=== PATIENT | female | born 1945 | race Caucasian/White ===

== ENCOUNTER 2016-11-15 14:11 | Inpatient (IN) | payer MEDICARE, MEDICAID ==
[2016-11-15] MEDS ORDERED: Sodium Chloride 0.9% 2.5 ML Syringe FLUSH PRN (14:36)
[2016-11-15] MEDS ORDERED: Aspirin 81 MG Tab.Chew PO ONE (14:36)
[2016-11-15] MEDS ORDERED: Furosemide 40 MG/4 ML VIAL IVPUSH ONE (14:36)
[2016-11-15] MEDS ORDERED: Diltiazem 25 MG/5 ML SDV IVPUSH ONE (14:36)
[2016-11-15] MEDS ORDERED: Sodium Chloride 0.9% 10 ML Syringe FLUSH PRN (14:36)
--- NOTE | 2016-11-15 14:56 | EDM.PDOC ---
ED HPI GENERAL MEDICAL PROBLEM - General Chief Complaint: Cardiovascular Problem Stated Complaint: PAIN/SWELLING FEET TROUBLE BREATHING Time Seen by Provider: 11/15/16 14:34 - History of Present Illness INITIAL COMMENTS - FREE TEXT/NARRATIVE: HISTORY AND PHYSICAL: History of present illness: Patient 71-year-old white female sensory concern of shortness of breath she's extremely poor historian she also has increased peripheral edema she denies chest pain nausea vomiting fever chills or other concern Review of systems: As per history of present illness and below otherwise all systems reviewed and negative. Past medical history: As per history of present illness and as reviewed below otherwise noncontributory. Surgical history: As per history of present illness and as reviewed below otherwise noncontributory. Social history: No reported history of drug or alcohol abuse. Family history: As per history of present illness and as reviewed below otherwise noncontributory. Physical exam: HEENT: Atraumatic, normocephalic, pupils reactive, negative for conjunctival pallor or scleral icterus, mucous membranes moist, throat clear, neck supple, nontender, trachea midline. Lungs: Basilar crackles noted, breath sounds equal bilaterally, chest nontender. Heart: S1S2, irregularly irregular and tachycardic negative for clicks, rubs, or JVD. Abdomen: Soft, nondistended, nontender. Negative for masses or hepatosplenomegaly. Negative for costovertebral tenderness. Pelvis: Stable nontender. Genitourinary: Deferred. Rectal: Deferred. Extremities: Atraumatic, negative for cords or calf pain. Neurovascular unremarkable. 3+ edema noted inferior extremities Neuro: Awake, alert, follows commands and moves all extremities limited grossly nonfocal exam Diagnostics: CBC CMP troponin BNP PT/INR chest x-ray EKG Therapeutics: IV O2 monitor Cardizem 20 mg IV aspirin 324 mg by mouth Impression: #1 atrial fibrillation with rapid ventricular response #2 CHF Definitive disposition and diagnosis as appropriate pending reevaluation and review of above. - Related Data Allergies Allergy/AdvReac Type Severity Reaction Status Date / Time No Known Allergies Allergy Verified 11/15/16 14:25 Home Meds: Home Meds . [Unable to Verify Home Med List] 11/15/16 [History] ED ROS GENERAL - Review of Systems Review Of Systems: ROS reveals no pertinent complaints other than HPI. ED EXAM, GENERAL - Physical Exam Exam: See Below (See dictation) Course - Vital Signs Last Recorded V/S: Last Vital Signs Temp 36.0 C 11/15/16 14:12 Pulse 114 H 11/15/16 14:12 Resp 21 H 11/15/16 15:36 BP 92/64 11/15/16 15:36 Pulse Ox 98 11/15/16 15:36 - Orders/Labs/Meds Orders: Active Orders 24 hr Category Date Time Status Cardiac Monitoring [RC] . DIRECTED Care 11/15/16 14:34 Active EKG Documentation Completion [RC] STAT Care 11/15/16 14:35 Active Oxygen Therapy, ED [RC] ASDIRECTED Care 11/15/16 14:34 Active Chest 1V Frontal [CR] Stat Exams 11/15/16 14:36 Taken UA W/MICROSCOPIC [URIN] Stat Lab 11/15/16 14:35 Ordered Sodium Chloride 0.9% [Saline Flush] Med 11/15/16 14:36 Active 10 ml FLUSH ASDIRECTED PRN Sodium Chloride 0.9% [Saline Flush] Med 11/15/16 14:36 Active 2.5 ml FLUSH ASDIRECTED PRN Saline Lock Insert [OM.PC] Stat Oth 11/15/16 14:34 Ordered Medication Orders Sodium Chloride (Saline Flush) 10 ml FLUSH ASDIRECTED PRN PRN Reason: Keep Vein Open Sodium Chloride (Saline Flush) 2.5 ml FLUSH ASDIRECTED PRN PRN Reason: Keep Vein Open Labs: Laboratory Tests 11/15/16 11/15/16 11/15/16 Range/Units 14:56 14:56 14:56 WBC 10.04 (4.0-11.0) K/uL RBC 4.12 L (4.30-5.90) M/uL Hgb 13.3 (12.0-16.0) g/dL Hct 40.5 (36.0-46.0) % MCV 98.3 H (80.0-98.0) fL MCH 32.3 H (27.0-32.0) pg MCHC 32.8 (31.0-37.0) g/dL RDW Std Deviation 54.1 (28.0-62.0) fl RDW Coeff of [place] 15 (11.0-15.0) % Plt Count 212 (150-400) K/uL MPV 9.10 (7.40-12.00) fL Neut % (Auto) 85.7 H (48.0-80.0) % Lymph % (Auto) 8.7 L (16.0-40.0) % [place] % (Auto) 4.8 (0.0-15.0) % Eos % (Auto) 0.4 (0.0-7.0) % Baso % (Auto) 0.4 (0.0-1.5) % Neut # (Auto) 8.6 H (1.4-5.7) K/uL Lymph # (Auto) 0.9 (0.6-2.4) K/uL [place] # (Auto) 0.5 (0.0-0.8) K/uL Eos # (Auto) 0.0 (0.0-0.7) K/uL Baso # (Auto) 0.0 (0.0-0.1) K/uL Nucleated RBC % 0.0 /100WBC Nucleated RBCs # 0 K/uL INR 1.06 (0.86-1.11) Sodium 145 (136-146) mmol/L Potassium 3.7 (3.5-5.1) mmol/L Chloride 110 (98-110) mmol/L Carbon Dioxide 23 (21-31) mmol/L BUN 12 (6.0-23.0) mg/dL Creatinine 0.7 (0.6-1.5) mg/dL Est Cr Clr Drug Dosing 65.50 mL/min Estimated GFR (MDRD) > 60.0 ml/min Glucose 121 H (60-110) mg/dL Calcium 8.0 L (8.8-10.8) mg/dL Total Bilirubin 0.4 (0.1-1.5) mg/dL AST 30 (5-40) IU/L ALT 27 (8-54) IU/L Alkaline Phosphatase 88 (40-150) Troponin I (0.0-0.29) NG/ML B-Natriuretic Peptide (<100) PG/ML Total Protein 6.6 (6.0-8.0) g/dL Albumin 3.4 (3.4-4.8) g/dL Globulin 3.2 (2.0-3.5) g/dL Albumin/Globulin Ratio 1.1 L (1.3-2.8) 11/15/16 11/15/16 Range/Units 14:56 14:56 WBC (4.0-11.0) K/uL RBC (4.30-5.90) M/uL Hgb (12.0-16.0) g/dL Hct (36.0-46.0) % MCV (80.0-98.0) fL MCH (27.0-32.0) pg MCHC (31.0-37.0) g/dL RDW Std Deviation (28.0-62.0) fl RDW Coeff of [place] (11.0-15.0) % Plt Count (150-400) K/uL MPV (7.40-12.00) fL Neut % (Auto) (48.0-80.0) % Lymph % (Auto) (16.0-40.0) % [place] % (Auto) (0.0-15.0) % Eos % (Auto) (0.0-7.0) % Baso % (Auto) (0.0-1.5) % Neut # (Auto) (1.4-5.7) K/uL Lymph # (Auto) (0.6-2.4) K/uL [place] # (Auto) (0.0-0.8) K/uL Eos # (Auto) (0.0-0.7) K/uL Baso # (Auto) (0.0-0.1) K/uL Nucleated RBC % /100WBC Nucleated RBCs # K/uL INR (0.86-1.11) Sodium (136-146) mmol/L Potassium (3.5-5.1) mmol/L Chloride (98-110) mmol/L Carbon Dioxide (21-31) mmol/L BUN (6.0-23.0) mg/dL Creatinine (0.6-1.5) mg/dL Est Cr Clr Drug Dosing mL/min Estimated GFR (MDRD) ml/min Glucose (60-110) mg/dL Calcium (8.8-10.8) mg/dL Total Bilirubin (0.1-1.5) mg/dL AST (5-40) IU/L ALT (8-54) IU/L Alkaline Phosphatase (40-150) Troponin I < 0.10 (0.0-0.29) NG/ML B-Natriuretic Peptide 382 H (<100) PG/ML Total Protein (6.0-8.0) g/dL Albumin (3.4-4.8) g/dL Globulin (2.0-3.5) g/dL Albumin/Globulin Ratio (1.3-2.8) Meds: Medications Generic Name Dose Route Start Last Admin Trade Name Freq PRN Reason Stop Dose Admin Sodium Chloride 10 ml 11/15/16 14:36 Saline Flush FLUSH ASDIRECTED PRN Keep Vein Open Sodium Chloride 2.5 ml 11/15/16 14:36 Saline Flush FLUSH ASDIRECTED PRN Keep Vein Open Discontinued Medications Generic Name Dose Route Start Last Admin Trade Name Freq PRN Reason Stop Dose Admin Aspirin 324 mg 11/15/16 14:36 11/15/16 15:05 Aspirin PO 11/15/16 14:37 324 mg ONETIME ONE Administration Diltiazem HCl 20 mg 11/15/16 14:36 11/15/16 15:12 Diltiazem IVPUSH 11/15/16 14:37 20 mg ONETIME ONE Administration Furosemide 20 mg 11/15/16 14:36 11/15/16 15:17 Lasix IVPUSH 11/15/16 14:37 20 mg NOW ONE Administration Departure - Departure Time of Disposition: 15:44 Disposition: Refer to Observation Condition: Good Clinical Impression: Atrial fibrillation with RVR, CHF (congestive heart failure) Forms: ED Department Discharge - My Orders Last 24 Hours: My Active Orders 11/15/16 14:34 Cardiac Monitoring [RC] . DIRECTED Oxygen Therapy, ED [RC] ASDIRECTED Saline Lock Insert [OM.PC] Stat 11/15/16 14:35 EKG Documentation Completion [RC] STAT UA W/MICROSCOPIC [URIN] Stat 11/15/16 14:36 Chest 1V Frontal [CR] Stat Sodium Chloride 0.9% [Saline Flush] 10 ml FLUSH ASDIRECTED PRN Sodium Chloride 0.9% [Saline Flush] 2.5 ml FLUSH ASDIRECTED PRN - Assessment/Plan Last 24 Hours: My Active Orders 11/15/16 14:34 Cardiac Monitoring [RC] . DIRECTED Oxygen Therapy, ED [RC] ASDIRECTED Saline Lock Insert [OM.PC] Stat 11/15/16 14:35 EKG Documentation Completion [RC] STAT UA W/MICROSCOPIC [URIN] Stat 11/15/16 14:36 Chest 1V Frontal [CR] Stat Sodium Chloride 0.9% [Saline Flush] 10 ml FLUSH ASDIRECTED PRN Sodium Chloride 0.9% [Saline Flush] 2.5 ml FLUSH ASDIRECTED PRN
[2016-11-15 15:35] LABS: CHLORIDE,CL 110 mmol/L (98-110); SODIUM,NA 145 mmol/L (136-146)
--- NOTE | 2016-11-15 16:17 | CR ---
EXAMINATION: Portable chest radiograph. HISTORY: Shortness of breath. FINDINGS: The trachea is midline. The cardiomediastinal silhouette is within normal limits. There is mild left lingular infiltrate. No pleural effusion or pneumothorax. Osseous structures appear unremarkable. IMPRESSION: Mild left lingular infiltrate.
[2016-11-15] MEDS ORDERED: Ondansetron 4 MG/2 ML SDV IVPUSH PRN (22:19)
--- NOTE | 2016-11-15 22:28 | PCM.HP ---
H&P History of Present Illness - General Admit Problem/Dx: Admission Diagnosis/Problem Admission Diagnosis/Problem CHF, Congestive heart failure - History of Present Illness Initial Comments - Free Text/Narative: 71 yo female with pmh of atrial fibrillation. She is a poor historian and only knows that she takes potassium pills. She is from [place] and is visiting her daughter. She presented to the ED with complaints of lower leg swelling and shortness of breath. Shortness of breath is worse lying down. She reports nausea. She denies any fevers, chills or cough. In the ED she was noted to be in Atrial fibrillation with HR in the 120s she was given diltiazem and lasix with improvement in her dyspnea and heart rate. - Related Data Allergies/Adverse Reactions: Allergies Allergy/AdvReac Type Severity Reaction Status Date / Time No Known Allergies Allergy Verified 11/15/16 14:25 Home Medications: Home Meds . [Unable to Verify Home Med List] 11/15/16 [History] Past Medical History HEENT History: Reports: Other (See Below) Other HEENT History: Impaired vision. Cardiovascular History: Reports: Other (See Below) Other Cardiovascular History: with heart attack in the past. 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 Exam - Exam Exam: See Below - Vital Signs Vital Signs: Last Vital Signs Temp 36.6 C 11/15/16 20:00 Pulse 99 11/15/16 20:00 Resp 16 11/15/16 20:00 BP 123/71 11/15/16 20:00 Pulse Ox 94 L 11/15/16 20:00 Weight: 96.162 kg - Exam General: Alert, Oriented, 4 HEENT: Mucosa Moist & [place], Posterior Pharynx Clear Neck: Supple Lungs: Clear to Auscultation, Normal Respiratory Effort Cardiovascular: Regular Rate, Irregular Rhythm Abdomen: Normal Bowel Sounds, Soft, Pelvis Stable Extremities: Edema (+2 edema) - Patient Data Result Diagrams: 11/15/16 14:56 11/15/16 14:56 EKG INTERPRETATION Rhythm: A-Fib Rate (Beats/Min): 129 QRS: Normal ST-T: Normal *Q Meaningful Use (ADM) - VTE *Q VTE Criteria *Q: - Stroke *Q Stroke Criteria *Q: - AMI *Q AMI Criteria *Q: Problem List Initiated/Reviewed/Updated: Yes Orders Last 24hrs: Active Orders 24 hr Category Date Time Status Antiembolic Devices [RC] PER UNIT ROUTINE Care 11/15/16 22:21 Ordered Intake and Output [RC] QSHIFT Care 11/15/16 22:20 Ordered Oxygen Therapy [RC] PRN Care 11/15/16 22:19 Ordered Telemetry Monitoring [Cardiac Monitoring] [RC] . Care 11/15/16 18:36 Active DIRECTED Up ad Ronda [RC] ASDIRECTED Care 11/15/16 22:19 Ordered VTE/DVT Education [RC] PER UNIT ROUTINE Care 11/15/16 22:19 Ordered Vital Signs [RC] Q4H Care 11/15/16 22:19 Ordered Heart Healthy Diet [DIET] Diet 11/15/16 Dinner Active BASIC METABOLIC PANEL,BMP [CHEM] AM Lab 11/16/16 05:11 Ordered BASIC METABOLIC PANEL,BMP [CHEM] AM Lab 11/17/16 05:11 Ordered CBC WITH AUTO DIFF [HEME] AM Lab 11/16/16 05:11 Ordered CBC WITH AUTO DIFF [HEME] AM Lab 11/17/16 05:11 Ordered MAGNESIUM [CHEM] AM Lab 11/16/16 05:11 Ordered MAGNESIUM [CHEM] AM Lab 11/17/16 05:11 Ordered Enoxaparin [Lovenox] Med 11/16/16 09:00 Ordered 40 mg SUBCUT DAILY Furosemide [Lasix] Med 11/15/16 22:30 Ordered 40 mg IVPUSH DAILY Ondansetron [Zofran] Med 11/15/16 22:19 Ordered 4 mg IVPUSH Q4H PRN Sequential Compression Device [OM.PC] Per Unit Routine Oth 11/15/16 22:20 Ordered Resuscitation Status Routine Resus Stat 11/15/16 22:19 Ordered Medication Orders Enoxaparin Sodium (Lovenox) 40 mg SUBCUT DAILY NANCY Furosemide (Lasix) 40 mg IVPUSH DAILY NANCY Ondansetron HCl (Zofran) 4 mg IVPUSH Q4H PRN PRN Reason: Nausea Sodium Chloride (Saline Flush) 10 ml FLUSH ASDIRECTED PRN PRN Reason: Keep Vein Open Sodium Chloride (Saline Flush) 2.5 ml FLUSH ASDIRECTED PRN PRN Reason: Keep Vein Open Assessment/Plan Comment:: 71 yo female admitted for CHF and atrial fibrillation with RVR. Patient responded well to lasix and diltiazem. Will continue lasix diureses and try to obtain medical records from [place].
[2016-11-15] MEDS: Furosemide 40 MG/4 ML VIAL IVPUSH SCH (22:42)
[2016-11-16 07:04] LABS: CHLORIDE,CL 99 mmol/L (98-110); SODIUM,NA 143 mmol/L (136-146)
[2016-11-16] MEDS: Furosemide 40 MG/4 ML VIAL IVPUSH SCH (08:21)
[2016-11-16] MEDS: Enoxaparin 40 MG/0.4 ML Syringe SUBCUT SCH (08:21)
[2016-11-16] MEDS ORDERED: Potassium Chloride 10% 20 MEQ/15 ML Soln 30 ML UD Cup PO ONE (08:30)
--- NOTE | 2016-11-16 08:46 | PCM.PN ---
- General Info Date of Service: 11/16/16 Functional Status: Reports: tolerating diet, urinating - Review of Systems General: Reports: Weakness, Fatigue HEENT: Reports: no symptoms Pulmonary: Reports: shortness of breath. Denies: pleuritic chest pain Cardiovascular: Reports: No Symptoms Gastrointestinal: Reports: No symptoms Genitourinary: Reports: no symptoms Musculoskeletal: Reports: no symptoms Skin: Reports: no symptoms Neurological: Reports: No Symptoms Psychiatric: Reports: no symptoms - Patient Data Vitals - most recent: Last Vital Signs Temp 97.9 F 11/16/16 08:00 Pulse 106 H 11/16/16 08:00 Resp 18 11/16/16 08:00 BP 126/87 11/16/16 08:00 Pulse Ox 94 L 11/16/16 08:00 Weight - most recent: 94.5 kg I&O - last 24 hours: Intake & Output 11/15/16 11/16/16 11/16/16 22:59 06:59 14:59 Intake Total 550 Output Total 2000 Balance -1450 Lab Results last 24 hrs: Laboratory Results - last 24 hr 11/16/16 11/16/16 Range/Units 06:35 06:35 WBC 7.37 (4.0-11.0) K/uL RBC 4.00 L (4.30-5.90) M/uL Hgb 13.0 (12.0-16.0) g/dL Hct 39.0 (36.0-46.0) % MCV 97.5 (80.0-98.0) fL MCH 32.5 H (27.0-32.0) pg MCHC 33.3 (31.0-37.0) g/dL RDW Std Deviation 53.4 (28.0-62.0) fl RDW Coeff of [place] 15 (11.0-15.0) % Plt Count 193 (150-400) K/uL MPV 9.30 (7.40-12.00) fL Neut % (Auto) 72.6 (48.0-80.0) % Lymph % (Auto) 16.6 (16.0-40.0) % [place] % (Auto) 7.9 (0.0-15.0) % Eos % (Auto) 2.6 (0.0-7.0) % Baso % (Auto) 0.3 (0.0-1.5) % Neut # (Auto) 5.4 (1.4-5.7) K/uL Lymph # (Auto) 1.2 (0.6-2.4) K/uL [place] # (Auto) 0.6 (0.0-0.8) K/uL Eos # (Auto) 0.2 (0.0-0.7) K/uL Baso # (Auto) 0.0 (0.0-0.1) K/uL Nucleated RBC % 0.0 /100WBC Nucleated RBCs # 0 K/uL Sodium 143 (136-146) mmol/L Potassium 2.8 L (3.5-5.1) mmol/L Chloride 99 (98-110) mmol/L Carbon Dioxide 33 H (21-31) mmol/L BUN 10 (6.0-23.0) mg/dL Creatinine 0.6 (0.6-1.5) mg/dL Est Cr Clr Drug Dosing 76.97 mL/min Estimated GFR (MDRD) > 60.0 ml/min Glucose 101 (60-110) mg/dL Calcium 7.4 L (8.8-10.8) mg/dL Magnesium 0.5 L (1.5-2.3) mEq/L Med Orders - Current: Current Medications Enoxaparin Sodium (Lovenox) 40 mg SUBCUT DAILY [facility] Last Admin: 11/16/16 08:21 Dose: 40 mg Furosemide (Lasix) 40 mg IVPUSH DAILY [facility] Last Admin: 11/16/16 08:21 Dose: 40 mg Ondansetron HCl (Zofran) 4 mg IVPUSH Q4H PRN PRN Reason: Nausea Sodium Chloride (Saline Flush) 10 ml FLUSH ASDIRECTED PRN PRN Reason: Keep Vein Open Sodium Chloride (Saline Flush) 2.5 ml FLUSH ASDIRECTED PRN PRN Reason: Keep Vein Open Discontinued Medications Aspirin (Aspirin) 324 mg PO ONETIME ONE Stop: 11/15/16 14:37 Last Admin: 11/15/16 15:05 Dose: 324 mg Diltiazem HCl (Diltiazem) 20 mg IVPUSH ONETIME ONE Stop: 11/15/16 14:37 Last Admin: 11/15/16 15:12 Dose: 20 mg Furosemide (Lasix) 20 mg IVPUSH NOW ONE Stop: 11/15/16 14:37 Last Admin: 11/15/16 15:17 Dose: 20 mg Potassium Chloride (Potassium Chloride) 40 meq PO ONETIME ONE Stop: 11/16/16 08:31 Last Admin: 11/16/16 08:30 Dose: 40 meq - Exam Quality Assessment: supplemental oxygen General: alert, oriented, cooperative HEENT: Pupils equal, Pupils reactive, EOMI Neck: supple, trachea midline Lungs: Decreased breath sounds Cardiovascular: Regular Rate, Regular Rhythm Abdomen: bowel sounds present, soft, no tenderness Back Exam: Normal Inspection, Full Range of Motion Extremities: edema Skin: warm, dry, intact Neurological: no new focal deficit Psy/Mental Status: alert, normal affect, normal mood - Problem List Review Problem List Initiated/Reviewed/Updated: Yes - My Orders Last 24 Hours: My Active Orders 11/16/16 08:42 Communication Order [RC] PER UNIT ROUTINE - Plan Plan:: 71 yo female admitted for CHF and atrial fibrillation with RVR. Improving with diruesis I/O 550/2000, on lasix 40 mg IVP qd. Hypokalemia; replaced K 40 mEq x1 Hypomagnesiumia: replaced mg Telemetry: AF HR 80-130's with occasional PVC: start toprol xl 50 mg QD DVT prophylaxis: Lovenox
[2016-11-16] MEDS ORDERED: Magnesium Sulfate/Water 2 GM in Premix Bag 1 BAG IV ONE ×4 (11:35→18:11)
[2016-11-16] MEDS ORDERED: Acetaminophen 325 MG Tab PO ONE (12:15)
[2016-11-16] MEDS: Metoprolol Succinate 50 MG Tab.ER PO SCH (12:15)
[2016-11-16] MEDS ORDERED: LORazepam 2 MG/ML MDV IVPUSH PRN (12:34)
[2016-11-16] MEDS ORDERED: Potassium Chloride 20 MEQ Tab.ER PO ONE (12:50)
[2016-11-16] MEDS: Folic Acid 50 MG/10 ML MDV SUBCUT SCH (12:51)
[2016-11-16] MEDS: Thiamine 200 MG/2 ML MDV IV SCH (12:52)
[2016-11-16 15:40] LABS: CHLORIDE,CL 95 mmol/L (98-110); SODIUM,NA 140 mmol/L (136-146)
[2016-11-17 06:33] LABS: CHLORIDE,CL 96 mmol/L (98-110); SODIUM,NA 138 mmol/L (136-146)
[2016-11-17] MEDS: Metoprolol Succinate 50 MG Tab.ER PO SCH (08:53)
[2016-11-17] MEDS: Thiamine 200 MG/2 ML MDV IV SCH (08:55)
[2016-11-17] MEDS: Enoxaparin 40 MG/0.4 ML Syringe SUBCUT SCH (08:55)
[2016-11-17] MEDS: Furosemide 40 MG/4 ML VIAL IVPUSH SCH (08:55)
[2016-11-17] MEDS: Folic Acid 50 MG/10 ML MDV SUBCUT SCH (08:56)
[2016-11-17 12:04] VITALS: BP 95/68
[2016-11-17] MEDS ORDERED: Potassium Chloride 20 MEQ Tab.ER PO ONE (12:45)
--- NOTE | 2016-11-17 13:05 | PCM.DCSUM1 ---
Discharge Summary - Hospital Course Free Text/Narrative:: The patient was admitted with essentially new onset congestive heart failure, alcohol abuse and atrial fibrillation. - Discharge Data Discharge Date: 11/17/16 Discharge Disposition: Home, Self-Care 01 Condition: Fair - Discharge Diagnosis/Problem(s) (1) Atrial fibrillation with RVR SNOMED Code(s): 910560122477368 ICD Code: I48.91 - UNSPECIFIED ATRIAL FIBRILLATION Status: Acute Priority : Medium Current Visit: Yes (2) CHF (congestive heart failure) SNOMED Code(s): 83709867 ICD Code: I50.9 - HEART FAILURE, UNSPECIFIED Status: Chronic Priority: High Current Visit: Yes Qualifiers: Congestive heart failure type: systolic Congestive heart failure chronicity : acute on chronic Qualified Code(s): I50.23 - Acute on chronic systolic ( congestive) heart failure (3) Hypokalemia SNOMED Code(s): 11590135 ICD Code: E87.6 - HYPOKALEMIA Status: Chronic Priority: High Current Visit: Yes (4) Insomnia disorder SNOMED Code(s): 590182355 ICD Code: G47.00 - INSOMNIA, UNSPECIFIED Status: Chronic Priority: Medium Current Visit: Yes Qualifiers: Insomnia type: alcohol-induced Qualified Code(s): F10.982 - Alcohol use, unspecified with alcohol-induced sleep disorder (5) Alcohol abuse SNOMED Code(s): 16661556 ICD Code: F10.10 - ALCOHOL ABUSE, UNCOMPLICATED Status: Chronic Priority : High Current Visit: Yes - Patient Summary/Data Hospital Course: November 17, 2016:The patient is a 71-year-old lady who has been visiting her daughter from [place] and presented to the emergency department on November 15, 2016. The patient was admitted secondary to severe swelling of her lower extremities along with shortness of breath. The patient was severely short of breath primarily when lying down. She is also a poor historian and has a history of daily alcohol consumption. The patient does not know what medications she has been taking and has a bag of partial filled medication containers. In the emergency department the patient was noted to be in atrial fibrillation with a heart rate of 120 and she had been given diltiazem and Lasix with some improvement in both her subjective dyspnea as well as her heart rate. The patient's B-type natruretic peptide in the emergency department was 382 pg/mL. This is 3 times the upper limit of normal. The patient apparently has had a heart attack in the past. Other information has been obtained from the patient' s daughter who is with her in her room. The patient today says that her breathing has improved significantly. She still has swelling in her lower extremities but she has been ambulating well. A 2-D echocardiogram was obtained on November 15, 2016 and final results are currently pending on this although it does look like patient has a depressed ejection fraction. The patient will be referred to cardiology. The patient is not sure of her current living situation but she is going to be staying with her daughter for some period of time here. The patient was placed on alcohol withdrawal protocol and she had been given Ativan thiamine and folic acid as well as being watch closely for withdrawal symptoms. The patient had not exhibited any of these symptoms. I day of discharge the patient's vital signs were stable her pulse rate was 73-87 bpm and her blood pressure was controlled at 117/68 mmHg. The patient also had been tolerating her diet and her pain was controlled. She will be discharged home with recommendation to follow-up with her primary care physician, manager of financial as scheduled. Patient also has been discharged on oral Lasix as well as her previously noted medications. The patient has been advised to return to the emergency department if she has any further shortness of breath. The patient's oxygen saturation is at 96% on room air. - Patient Instructions Diet: Heart Healthy Diet, No Alcoholic Beverages - Discharge Plan Prescriptions/Med Rec: Folic Acid 1 mg SUBCUT DAILY #30 mdv Furosemide [Lasix] 40 mg IVPUSH DAILY #30 vial Metoprolol Succinate [Toprol XL] 50 mg PO DAILY #30 tab.er Thiamine [Vitamin B-1] 100 mg IV DAILY #30 mdv Home Medications: Home Meds Folic Acid 1 mg SUBCUT DAILY #30 mdv 11/17/16 [Rx] Furosemide [Lasix] 40 mg IVPUSH DAILY #30 vial 11/17/16 [Rx] Metoprolol Succinate [Toprol XL] 50 mg PO DAILY #30 tab.er 11/17/16 [Rx] Potassium Chloride 20 meq PO DAILY 11/17/16 [History] Thiamine [Vitamin B-1] 100 mg IV DAILY #30 mdv 11/17/16 [Rx] atorvaSTATin [Lipitor] 40 mg PO BEDTIME 11/17/16 [History] traZODone HCl [Trazodone HCl] 100 mg PO BEDTIME 11/17/16 [History] Patient Handouts: Heart Failure, [id number], Atrial Fibrillation, Easy-to- Read Referrals: Hubert Santos MD [Physician] - 11/27/16 1:00 pm Charlene Saenz MD [Physician] - 11/27/16 2:45 pm - Discharge Summary/Plan Comment DC Time >30 min.: Yes - Patient Data Vitals - Most Recent: Last Vital Signs Temp 35.9 C 11/17/16 12:00 Pulse 87 11/17/16 12:00 Resp 20 11/17/16 12:00 BP 95/68 11/17/16 12:00 Pulse Ox 96 11/17/16 12:00 Weight - Most Recent: 97.4 kg I&O - Last 24 hours: Intake & Output 11/16/16 11/17/16 11/17/16 22:59 06:59 14:59 Intake Total 700 500 Output Total 1100 550 Balance -400 -50 Lab Results - Last 24 hrs: Laboratory Results - last 24 hr 11/16/16 11/16/16 11/16/16 Range/Units 14:56 15:15 15:15 WBC (4.0-11.0) K/uL RBC (4.30-5.90) M/uL Hgb (12.0-16.0) g/dL Hct (36.0-46.0) % MCV (80.0-98.0) fL MCH (27.0-32.0) pg MCHC (31.0-37.0) g/dL RDW Std Deviation (28.0-62.0) fl RDW Coeff of [place] (11.0-15.0) % Plt Count (150-400) K/uL MPV (7.40-12.00) fL Neut % (Auto) (48.0-80.0) % Lymph % (Auto) (16.0-40.0) % [place] % (Auto) (0.0-15.0) % Eos % (Auto) (0.0-7.0) % Baso % (Auto) (0.0-1.5) % Neut # (Auto) (1.4-5.7) K/uL Lymph # (Auto) (0.6-2.4) K/uL [place] # (Auto) (0.0-0.8) K/uL Eos # (Auto) (0.0-0.7) K/uL Baso # (Auto) (0.0-0.1) K/uL Nucleated RBC % /100WBC Nucleated RBCs # K/uL INR 1.26 H (0.86-1.11) Sodium 140 (136-146) mmol/L Potassium 3.7 (3.5-5.1) mmol/L Chloride 95 L (98-110) mmol/L Carbon Dioxide 32 H (21-31) mmol/L BUN 13 (6.0-23.0) mg/dL Creatinine 0.7 (0.6-1.5) mg/dL Est Cr Clr Drug Dosing 65.98 mL/min Estimated GFR (MDRD) > 60.0 ml/min Glucose 125 H (60-110) mg/dL Calcium 7.9 L (8.8-10.8) mg/dL Magnesium 1.4 L (1.5-2.3) mEq/L Ethyl Alcohol < 10.0 mg/dL 11/17/16 11/17/16 Range/Units 05:50 05:50 WBC 7.64 (4.0-11.0) K/uL RBC 4.06 L (4.30-5.90) M/uL Hgb 13.1 (12.0-16.0) g/dL Hct 39.8 (36.0-46.0) % MCV 98.0 (80.0-98.0) fL MCH 32.3 H (27.0-32.0) pg MCHC 32.9 (31.0-37.0) g/dL RDW Std Deviation 53.9 (28.0-62.0) fl RDW Coeff of [place] 15 (11.0-15.0) % Plt Count 217 (150-400) K/uL MPV 9.60 (7.40-12.00) fL Neut % (Auto) 74.5 (48.0-80.0) % Lymph % (Auto) 16.6 (16.0-40.0) % [place] % (Auto) 6.7 (0.0-15.0) % Eos % (Auto) 2.1 (0.0-7.0) % Baso % (Auto) 0.1 (0.0-1.5) % Neut # (Auto) 5.7 (1.4-5.7) K/uL Lymph # (Auto) 1.3 (0.6-2.4) K/uL [place] # (Auto) 0.5 (0.0-0.8) K/uL Eos # (Auto) 0.2 (0.0-0.7) K/uL Baso # (Auto) 0.0 (0.0-0.1) K/uL Nucleated RBC % 0.0 /100WBC Nucleated RBCs # 0 K/uL INR (0.86-1.11) Sodium 138 (136-146) mmol/L Potassium 3.1 L (3.5-5.1) mmol/L Chloride 96 L (98-110) mmol/L Carbon Dioxide 31 (21-31) mmol/L BUN 13 (6.0-23.0) mg/dL Creatinine 0.6 (0.6-1.5) mg/dL Est Cr Clr Drug Dosing 76.97 mL/min Estimated GFR (MDRD) > 60.0 ml/min Glucose 99 (60-110) mg/dL Calcium 7.6 L (8.8-10.8) mg/dL Magnesium 1.5 (1.5-2.3) mEq/L Ethyl Alcohol mg/dL Med Orders - Current: Current Medications Enoxaparin Sodium (Lovenox) 40 mg SUBCUT DAILY [facility] Last Admin: 11/17/16 08:55 Dose: 40 mg Folic Acid (Folic Acid) 1 mg SUBCUT DAILY [facility] Last Admin: 11/17/16 08:56 Dose: 1 mg Furosemide (Lasix) 40 mg IVPUSH DAILY [facility] Last Admin: 11/17/16 08:55 Dose: 40 mg Lorazepam (Ativan) 0 mg IVPUSH Q4H PRN; Protocol PRN Reason: CIWAA Metoprolol Succinate (Toprol Xl) 50 mg PO DAILY [facility] Last Admin: 11/17/16 08:53 Dose: 50 mg Ondansetron HCl (Zofran) 4 mg IVPUSH Q4H PRN PRN Reason: Nausea Sodium Chloride (Saline Flush) 10 ml FLUSH ASDIRECTED PRN PRN Reason: Keep Vein Open Sodium Chloride (Saline Flush) 2.5 ml FLUSH ASDIRECTED PRN PRN Reason: Keep Vein Open Thiamine HCl (Vitamin B-1) 100 mg IV DAILY [facility] Last Admin: 11/17/16 08:55 Dose: 100 mg Discontinued Medications Acetaminophen (Tylenol) 650 mg PO NOW ONE Stop: 11/16/16 12:16 Last Admin: 11/16/16 12:16 Dose: 650 mg Aspirin (Aspirin) 324 mg PO ONETIME ONE Stop: 11/15/16 14:37 Last Admin: 11/15/16 15:05 Dose: 324 mg Diltiazem HCl (Diltiazem) 20 mg IVPUSH ONETIME ONE Stop: 11/15/16 14:37 Last Admin: 11/15/16 15:12 Dose: 20 mg Furosemide (Lasix) 20 mg IVPUSH NOW ONE Stop: 11/15/16 14:37 Last Admin: 11/15/16 15:17 Dose: 20 mg Magnesium Sulfate 2 gm/ Premix 50 mls @ 25 mls/hr IV ONETIME ONE Stop: 11/16/16 13:34 Last Admin: 11/16/16 12:15 Dose: 25 mls/hr Magnesium Sulfate 2 gm/ Premix 50 mls @ 50 mls/hr IV ONETIME ONE Stop: 11/16/16 13:34 Last Admin: 11/16/16 13:49 Dose: Not Given Magnesium Sulfate 2 gm/ Premix 50 mls @ 50 mls/hr IV ONETIME ONE Stop: 11/16/16 15:59 Last Admin: 11/16/16 14:46 Dose: 50 mls/hr Magnesium Sulfate 2 gm/ Premix 50 mls @ 25 mls/hr IV ONETIME ONE Stop: 11/16/16 20:10 Last Admin: 11/16/16 18:44 Dose: 25 mls/hr Potassium Chloride (Potassium Chloride) 40 meq PO ONETIME ONE Stop: 11/16/16 08:31 Last Admin: 11/16/16 08:30 Dose: 40 meq Potassium Chloride (Klor-Con M20) 40 meq PO ONETIME ONE Stop: 11/16/16 12:51 Last Admin: 11/16/16 12:52 Dose: 40 meq Potassium Chloride (Klor-Con M20) 40 meq PO ONETIME ONE Stop: 11/17/16 12:46 Last Admin: 11/17/16 12:47 Dose: 40 meq *Q Meaningful Use (DIS) - VTE *Q VTE Criteria *Q: - Stroke *Q Stroke Criteria *Q: - AMI *Q AMI Criteria *Q:
--- NOTE | 2016-11-21 13:42 | ECHO ---
EXAM DATE: 11/16/16 PATIENT'S AGE: 71 The echocardiogram report can be seen in this patient's EMR (Electronic Medical Record) in the Reports section. The report has also been scanned into PACS. KARL
== END 2016-11-17 14:33 | disposition home or self-care (01) | DRG 308 ==
LOC: MW.ED 14:11 → MW.MS 15:45 → OBSVTOIN 11-16 12:37 → MW.MS 11-16 12:40
PROVIDERS: ADMIT Internal Medicine; ATTEND Internal Medicine
DX: I48.91 Unspecified atrial fibrillation (principal); I50.23 Acute on chronic systolic (congestive) heart failure; E87.6 Hypokalemia; F10.182 Alcohol abuse with alcohol-induced sleep disorder; G47.00 Insomnia, unspecified; R60.9 Edema, unspecified; E83.42 Hypomagnesemia
CPT/HCPCS: 36415 ×2; 71010; 80048; 80053; 81001; 83735; 83880; 84484; 85025 ×2; 85610; 93005; 96372; 96374; 96375 ×2; 96376 ×2; 99285; A9270 ×4; G0378 ×2; J1650; J1940 ×3; J3475; 93306; 99283; G0480; J3411; J3490